=== PATIENT | male | born 1970 | race Caucasian/White ===

== ENCOUNTER → 2021-12-03 | Outpatient (CLI) | payer OTHER ==
--- NOTE | 2021-12-03 14:51 | KCIC ---
EXAM: XR RIBS 2 VIEWS LT 12/03/2021 10:58 AM CLINICAL INDICATION: Fell downstairs, pain and bruising left lateral ribs COMPARISON: None TECHNIQUE: AP and oblique views of the left ribs. FINDINGS: No left rib fracture. Visualized portion of the lungs are clear. No left pleural effusion or pneumothorax. The heart is normal in size. IMPRESSION: No left rib fracture. Electronically signed by: Elisa Fraga MD (12/03/2021 2:49 PM) [id number]
== END ==
LOC: KCIC 10:55
PROVIDERS: ATTEND Family Medicine
DX: R07.81 Pleurodynia (principal); W19.XXXA Unspecified fall, initial encounter
CPT/HCPCS: 71100